=== PATIENT | female | born 2000 | race Caucasian/White ===

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

== ENCOUNTER 2024-05-07 12:50 | Emergency (ER) | payer OTHER ==
[~2024-05-07] VITALS: Ht 167.6 cm; Wt 54.4 kg
[2024-05-07 13:09] VITALS: BP 110/66
[2024-05-07 13:43] LABS: CORONAVIRUS COVID-19 AG Negative (NEGATIVE); INFLUENZA A AG Positive (NEGATIVE); INFLUENZA B AG Negative (NEGATIVE)
== END 2024-05-07 14:30 | disposition home or self-care (01) ==
LOC: ER 12:50
PROVIDERS: Physician Assistant
DX: J10.1 Influenza due to other identified influenza virus with other respiratory manifestations (principal); Z88.8 Allergy status to other drugs, medicaments and biological substances; F17.210 Nicotine dependence, cigarettes, uncomplicated
CPT/HCPCS: 87428-QW; 99283

== ENCOUNTER 2025-02-22 18:16 | Emergency (ER) | payer OTHER ==
[~2025-02-22] VITALS: Ht 167.6 cm; Wt 58.1 kg
[2025-02-22 19:15] LABS: Influenza A, PCR NEGATIVE (NEGATIVE); Influenza B, PCR NEGATIVE (NEGATIVE); Resp Syncytial Virus, PCR NEGATIVE (NEGATIVE); SARS-Cov-2 (COVID-19) PCR, MMC NEGATIVE (NEGATIVE)
[2025-02-22] MEDS ORDERED: Ondansetron HCl 2 MG / ML 2ML Vial IV ONE (19:20)
[2025-02-22 19:55] LABS: Source, Urine Clean Catch
[2025-02-22 19:58] LABS: Bilirubin, Urine Neg (Neg); Glucose Qualitative, Urine Neg (Neg); Ketones, Urine 1+ (Neg); Leukocyte Esterase, Urine 3+ (Neg); Protein, Urine Neg (Neg); Specific Gravity, Urine 1.005 (1.003-1.022); Urobilinogen, Urine NORM (Normal)
[2025-02-22 20:04] LABS: Color, Urine Pale Yellow (P-Yellow)
[2025-02-22 20:05] LABS: Red Blood Cells, Urine 0-2 /hpf (0-2)
[2025-02-22] MEDS ORDERED: RX Prepack 2 Tabs Ondansetron ODT 4MG UD ONE (21:45)
[2025-02-22] MEDS ORDERED: CEFP200 PO (21:46)
[2025-02-22] MEDS ORDERED: ONDA4ODT MM (21:46)
[2025-02-22 21:53] VITALS: BP 111/73
== END 2025-02-22 21:57 | disposition home or self-care (01) ==
LOC: ER 18:16
PROVIDERS: Emergency Medicine; Student in an Organized Health Care Education/Training Program
DX: J06.9 Acute upper respiratory infection, unspecified (principal); N39.0 Urinary tract infection, site not specified; F17.290 Nicotine dependence, other tobacco product, uncomplicated; Z88.8 Allergy status to other drugs, medicaments and biological substances
CPT/HCPCS: 81001; 81025; 87637; 99283; A9270; J7070